=== PATIENT | female | born 2000 | race Caucasian/White ===

== ENCOUNTER 2018-03-31 00:53 | Emergency (ER) | payer OTHER ==
--- NOTE | 2018-03-31 02:25 | RAD ---
EXAM: CT Cervical Spine Without Intravenous Contrast EXAM DATE/TIME: 03/31/2018 1:48 AM CLINICAL HISTORY: 17 years old, female; Injury or trauma; Fall; Initial encounter; Abrasion; Additional info: Gymnastics fall TECHNIQUE: Axial computed tomography images of the cervical spine without intravenous contrast. All CT scans at this facility use at least one of these dose optimization techniques: automated exposure control; mA and/or kV adjustment per patient size (includes targeted exams where dose is matched to clinical indication); or iterative reconstruction. Coronal and sagittal reformatted images were created and reviewed. COMPARISON: No relevant prior studies available. FINDINGS: Vertebrae: No acute fracture. Normal alignment. Soft tissues: Unremarkable. DISCS/SPINAL CANAL/NEURAL FORAMINA: C2-C3: No disc herniation. No spinal stenosis. No neural foraminal narrowing. C3-C4: No disc herniation. No spinal stenosis. No neural foraminal narrowing. C4-C5: No disc herniation. No spinal stenosis. No neural foraminal narrowing. C5-C6: No disc herniation. No spinal stenosis. No neural foraminal narrowing. C6-C7: No disc herniation. No spinal stenosis. No neural foraminal narrowing. C7-T1: No disc herniation. No spinal stenosis. No neural foraminal narrowing. IMPRESSION: No cervical spine fracture or other acute CT pathology. To contact [facility] with a general question: [facility] - [phone] For direct physician to physician contact: Physician Hotline - [phone] [facility] ([facility] Facility ID #[id number])
--- NOTE | 2018-03-31 02:27 | RAD ---
EXAM: CT Thoracic Spine Without Intravenous Contrast EXAM DATE/TIME: 03/31/2018 1:48 AM CLINICAL HISTORY: 17 years old, female; Injury or trauma; Fall; Initial encounter; Abrasion; Additional info: Gymnastics fall TECHNIQUE: Axial computed tomography images of the thoracic spine without intravenous contrast. All CT scans at this facility use at least one of these dose optimization techniques: automated exposure control; mA and/or kV adjustment per patient size (includes targeted exams where dose is matched to clinical indication); or iterative reconstruction. Coronal and sagittal reformatted images were created and reviewed. COMPARISON: No relevant prior studies available. FINDINGS: Vertebrae: No acute fracture. Normal alignment. Discs/Spinal canal/Neural foramina: No spinal stenosis. No neural foraminal narrowing. Soft tissues: Unremarkable. IMPRESSION: No thoracic spine fracture or other acute CT pathology. To contact [facility] with a general question: [facility] - [phone] For direct physician to physician contact: Physician Hotline - [phone] [facility] ([facility] Facility ID #[id number])
--- NOTE | 2018-03-31 02:51 | ED ---
Neck Pain - HPI Summary HPI Summary: Patient complains of posterior neck pain and upper back pain after landing on her neck during gymnastics routine tonight at 9 PM. Denies KELSEY, LOC, vision change, AMS, numbness and tingling, imbalance, any focal deficits, any other pain, symptoms, injury. Pain is either progressed nor improved since the initial event and 9 PM. Medical history is none. - History of Current Complaint Chief Complaint: EDNeckComplaint Stated Complaint: NECK PAIN Time Seen by Provider: 03/31/18 01:06 Hx Obtained From: Patient Onset/Duration Of Injury/Symptoms: Hours Mechanism Of Injury: Blunt Trauma Timing: Constant Onset/Duration: Sudden Onset Severity Initially: Moderate Severity Currently: Moderate Pain Intensity: 4 Pain Scale Used: 0-10 Numeric Character: Dull, Aching Aggravating Factors: Movement Alleviating Factors: Position Associated Signs & Symptoms: Positive: Negative - Allergies/Home Medications Allergies/Adverse Reactions: Allergies Allergy/AdvReac Type Severity Reaction Status Date / Time No Known Allergies Allergy Verified 03/31/18 01:00 PMH/Surg Hx/FS Hx/Imm Hx Endocrine/Hematology History: Denies: Hx Anticoagulant Therapy Cardiovascular History: Denies: Hx Cardiac Arrest History: Denies: Hx Dialysis Neurological History: Denies: Hx CVA Infectious Disease History: No Infectious Disease History: Denies: Traveled Outside the [place] in Last 30 Days - Social History Occupation: Student Alcohol Use: None Substance Use Type: Reports: None Smoking Status (MU): Never Smoked Tobacco Review of Systems Constitutional: Negative Eyes: Negative ENT: Negative Cardiovascular: Negative Respiratory: Negative Gastrointestinal: Negative Genitourinary: Negative Musculoskeletal: Other Skin: Negative Neurological: Negative Psychological: Normal All Other Systems Reviewed And Are Negative: Yes Physical Exam - Summary Physical Exam Summary: Full range of motion of neck with flexion, extension, rotation. No pain with palpation of C-spine, T-spine. No exam normal. No erythema, ecchymosis, deformity, swelling noted to head, neck, back. Triage Information Reviewed: Yes Vital Signs On Initial Exam: Initial Vitals Temp Pulse Resp BP Pulse Ox 97.9 F 67 16 110/70 99 03/31/18 00:57 03/31/18 00:57 03/31/18 00:57 03/31/18 00:57 03/31/18 00:57 Vital Signs Reviewed: Yes Appearance: Positive: Well-Appearing Skin: Positive: Warm Head/Face: Positive: Normal Head/Face Inspection Eyes: Positive: Normal ENT: Positive: Normal ENT inspection Neck: Positive: Supple Respiratory/Lung Sounds: Positive: Clear to Auscultation Cardiovascular: Positive: Normal Abdomen Description: Positive: Nontender Musculoskeletal: Positive: Normal Neurological: Positive: Normal Psychiatric: Positive: Normal AVPU Assessment: Alert - Paradis Coma Scale Best Eye Response: 4 - Spontaneous Best Motor Response: 6 - Obeys Commands Best Verbal Response: 5 - Oriented Coma Scale Total: 15 Diagnostics - Vital Signs Vital Signs Temp Pulse Resp BP Pulse Ox 03/31/18 00:57 97.9 F 67 16 110/70 99 - Laboratory Lab Statement: Any lab studies that have been ordered have been reviewed, and results considered in the medical decision making process. - CT C-spine CT Interpretation Completed By: Radiologist - Negative t spine CT Interpretation Completed By: Radiologist - Negative Neck Course/Dx - Course Course Of Treatment: Patient complains of posterior neck pain and upper back pain after landing on her neck during gymnastics routine tonight at 9 PM. Denies KELSEY, LOC, vision change, AMS, numbness and tingling, imbalance, any focal deficits, any other pain, symptoms, injury. Pain is either progressed nor improved since the initial event and 9 PM. Medical history is none. Physical exam:Full range of motion of neck with flexion, extension, rotation. No pain with palpation of C-spine, T-spine. No exam normal. No erythema, ecchymosis, deformity, swelling noted to head, neck, back. CT C-spine and T-spine negative. Ice and ibuprofen. Follow-up with orthopedics if symptoms do not improve. - Diagnoses Provider Diagnoses: Neck pain Discharge - Sign-Out/Discharge Documenting (check all that apply): Patient Departure - Discharge Plan Condition: Stable Disposition: HOME Patient Education Materials: Neck Pain (ED) Referrals: No Primary Care Phys,NOPCP [Primary Care Provider] - Donna Arce MD [Medical Doctor] - Additional Instructions: Follow-up with orthopedics Dr Arce if symptoms do not improve. Return to the ED for any new or worsening symptoms - Billing Disposition and Condition Condition: STABLE Disposition: Home
[2018-03-31 07:27] VITALS: BP 103/65
== END 2018-03-31 03:14 | disposition home or self-care (01) ==
LOC: ED 00:53
DX: M54.2 Cervicalgia (principal)
CPT/HCPCS: 72125; 72128; 99282